=== PATIENT | female | born 1975 | race Caucasian/White ===

== ENCOUNTER 2019-12-30 11:58 | Inpatient (IN) | payer OTHER ==
--- NOTE | 2019-12-30 12:17 | BHS.RME ---
Substance Use & Tx History - Substance Use History Alcohol Substance amount: 1.75 liters vodka Frequency of use: Daily Substance route: Oral Date of Last Use: 12/29/19 Physical/Psych/Mental Status - Behavior General Behavior: Increased activity (restlessness, agitation) Eye Contact: Normal - Cooperativeness Cooperativeness: Cooperative - Thinking Thought Processes: Tight, Logical, Goal Directed Thought content: Future oriented - Physical Health Problems Is patient presently having any pain?: No Does patient presently have any injuries (include location): No Does patient currently have a fever: No Is patient : No CIWA Nausea/Vomitin-Mild Nausea/No Vomiting Muscle Tremors: 3 Anxiety: 4-Mod. Anxious/Guarded Agitation: 4-Moderately Restless Paroxysmal Sweats: 1-Minimal Palms Moist Tacttile Disturbances: 0-None Auditory Disturbances: 0-None Visual Disturbances: 0-None Headache: 0-None Present (was seen in ER at [place] 12/29/ till 12/30 and got two doses of librium as per discharge summary.)
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
[2019-12-30] MEDS ORDERED: ACETAMINOPHEN 325 MG TABLET (FP) PO PRN ×2 (14:49)
[2019-12-30] MEDS ORDERED: METHOCARBAMOL 500 MG TABLET PO PRN (14:49)
[2019-12-30] MEDS ORDERED: MAG HYDROX/AL HYDROX/SIMETH 30 ML UNIT-DOSE CUP PO PRN (14:49)
[2019-12-30] MEDS ORDERED: hydrOXYzine PAMOATE 25 MG CAPSULE (FP) PO PRN (14:49)
[2019-12-30] MEDS ORDERED: MENTHOL/PHENOL 1 EACH UD MM PRN (14:49)
[2019-12-30] MEDS ORDERED: MAGNESIUM HYDROX 2400MG/30ML ORAL SUSPENSION 30 ML CUP PO PRN (14:49)
[2019-12-30] MEDS ORDERED: BISMUTH SUBSALICYLATE 524 MG/30 ML UD PO PRN (14:49)
[2019-12-30] MEDS ORDERED: chlordiazePOXIDE HCL 25 MG CAPSULE PO PRN (14:49)
[2019-12-30] MEDS ORDERED: MAGNESIUM CITRATE 300 ML BOTTLE PO PRN (14:49)
[2019-12-30 15:31] VITALS: BMI 37.3
[2019-12-30 16:38] LABS: HEMOGLOBIN 13.3 GM/dL (10.7-15.3); MCHC 32.6 g/dl (32.0-36.0); MEAN CELL VOLUME 82.9 fl (80-96); MEAN PLT VOLUME 8.4 fl (7.5-11.1); PLATELET COUNT 314 K/MM3 (134-434); RBC 4.94 M/mm3 (3.60-5.2); RDW 15.1 % (11.6-15.6)
[2019-12-30 16:54] LABS: ALBUMIN 3.4 g/dl (3.4-5.0); BILIRUBIN,TOTAL 0.5 mg/dL (0.2-1); BLOOD UREA NITROGEN 15.3 mg/dL (7-18); CALCIUM 8.4 mg/dL (8.5-10.1); CREATININE 0.7 mg/dL (0.55-1.3); POTASSIUM 4.4 mmol/L (3.5-5.1)
[2019-12-30] MEDS: NICOTINE 14 MG/24 HOURS TOPICAL PATCH TD SCH (17:29)
[2019-12-30] MEDS: chlordiazePOXIDE HCL 25 MG CAPSULE PO SCH ×2 (17:30→22:31)
[2019-12-30] MEDS: IBUPROFEN 400 MG TABLET (FP) PO PRN (17:30)
[2019-12-30] MEDS: THIAMINE HCL 100 MG TABLET (FP) PO SCH (22:31)
[2019-12-31] MEDS: chlordiazePOXIDE HCL 25 MG CAPSULE PO SCH ×4 (06:30→22:08)
[2019-12-31] MEDS: IBUPROFEN 400 MG TABLET (FP) PO PRN (06:31)
[2019-12-31] MEDS: PRENATAL VITAMINS W/ FOLIC ACID TABLET (FP) PO SCH (10:24)
[2019-12-31] MEDS: NICOTINE 14 MG/24 HOURS TOPICAL PATCH TD SCH (10:24)
[2019-12-31] MEDS: guaiFENesin 200 MG/10 ML 10 ML UNIT-DOSE CUPS PO PRN ×2 (10:25→22:08)
--- NOTE | 2019-12-31 11:13 | PN ---
S CIWA - CIWA Score Nausea/Vomitin-Mild Nausea/No Vomiting Muscle Tremors: 2 Anxiety: 1-Mildly Anxious Agitation: 1-Slight > Activity Paroxysmal Sweats: No Perspiration Orientation: 0-Oriented Tacttile Disturbances: 0-None Auditory Disturbances: 0-None Visual Disturbances: 0-None Headache: 1-Very Mild CIWA-Ar Total Score: 6 BHS Progress Note (SOAP) Subjective: admitted yesterday for alcohol detox. says would like cough med- non productive dry cough O: Laboratory Tests 12/30/19 12/30/19 12/30/19 15:10 15:10 15:10 WBC 12.0 H RBC 4.94 Hgb 13.3 Hct 41.0 MCV 82.9 MCH 27.0 MCHC 32.6 RDW 15.1 Plt Count 314 MPV 8.4 Sodium 142 Potassium 4.4 Chloride 109 H Carbon Dioxide 28 Anion Gap 5 L BUN 15.3 Creatinine 0.7 Est GFR (CKD-EPI)AfAm 120.43 Est GFR (CKD-EPI)NonAf 103.90 Random Glucose 93 Calcium 8.4 L Total Bilirubin 0.5 AST 12 L ALT 34 Alkaline Phosphatase 94 Total Protein 7.0 Albumin 3.4 RPR Titer Nonreactive Vital Signs - 24 hr 12/30/19 12/30/19 12/30/19 15:23 16:50 20:53 Temperature 97.2 F L 98.2 F 98.4 F Pulse Rate 93 H 95 H 93 H Respiratory 20 18 20 Rate Blood Pressure 140/96 147/73 147/80 12/31/19 12/31/19 03:30 07:19 Temperature 97.2 F L Pulse Rate 74 Respiratory 20 18 Rate Blood Pressure 125/77 a/p: Continue alcohol detox cough- encouraged fluids, cough med
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
[2019-12-31] MEDS: ALBUTEROL SO4 HFA INHALER IH PRN (22:07)
[2019-12-31] MEDS: THIAMINE HCL 100 MG TABLET (FP) PO SCH (22:08)
[2020-01-01] MEDS: ALBUTEROL SO4 HFA INHALER IH PRN ×2 (05:45→12:35)
[2020-01-01] MEDS: chlordiazePOXIDE HCL 25 MG CAPSULE PO SCH ×4 (05:46→22:30)
[2020-01-01] MEDS: PRENATAL VITAMINS W/ FOLIC ACID TABLET (FP) PO SCH (10:13)
[2020-01-01] MEDS: NICOTINE 14 MG/24 HOURS TOPICAL PATCH TD SCH (10:13)
--- NOTE | 2020-01-01 13:27 | PN ---
S CIWA - CIWA Score Nausea/Vomitin Muscle Tremors: 1-None Visible, but [place] Anxiety: 1-Mildly Anxious Agitation: 1-Slight > Activity Paroxysmal Sweats: 1-Minimal Palms Moist Orientation: 0-Oriented Tacttile Disturbances: 1-Very Mild Itch/Numbness Auditory Disturbances: 0-None Visual Disturbances: 0-None Headache: 0-None Present CIWA-Ar Total Score: 7 BHS Progress Note (SOAP) Subjective: interrupted sleep, diarrhea, but better Objective: 01/01/20 13:26 Vital Signs Temperature 97.7 F 01/01/20 08:59 Pulse Rate 86 01/01/20 08:59 Respiratory Rate 19 01/01/20 08:59 Blood Pressure 124/86 01/01/20 08:59 O2 Sat by Pulse Oximetry (%) Laboratory Tests 12/30/19 12/30/19 12/30/19 15:10 15:10 15:10 WBC 12.0 H RBC 4.94 Hgb 13.3 Hct 41.0 MCV 82.9 MCH 27.0 MCHC 32.6 RDW 15.1 Plt Count 314 MPV 8.4 Sodium 142 Potassium 4.4 Chloride 109 H Carbon Dioxide 28 Anion Gap 5 L BUN 15.3 Creatinine 0.7 Est GFR (CKD-EPI)AfAm 120.43 Est GFR (CKD-EPI)NonAf 103.90 Random Glucose 93 Calcium 8.4 L Total Bilirubin 0.5 AST 12 L ALT 34 Alkaline Phosphatase 94 Total Protein 7.0 Albumin 3.4 RPR Titer Nonreactive pt aox3 in nad ambulating Assessment: 01/01/20 13:26 withdrawal sx's Plan: cont. detox increase fluids peptobismol
[2020-01-01] MEDS: guaiFENesin 200 MG/10 ML 10 ML UNIT-DOSE CUPS PO PRN (22:30)
[2020-01-01] MEDS: THIAMINE HCL 100 MG TABLET (FP) PO SCH (22:30)
[2020-01-01] MEDS: MELATONIN 5 MG TABLETS PO PRN (22:30)
[2020-01-02] MEDS ORDERED: chlordiazePOXIDE HCL 10 MG CAPSULE PO PRN
[2020-01-02] MEDS: chlordiazePOXIDE HCL 10 MG CAPSULE PO SCH ×4 (05:45→22:06)
[2020-01-02] MEDS: IBUPROFEN 400 MG TABLET (FP) PO PRN (05:47)
[2020-01-02] MEDS: PRENATAL VITAMINS W/ FOLIC ACID TABLET (FP) PO SCH (10:27)
[2020-01-02] MEDS: NICOTINE 14 MG/24 HOURS TOPICAL PATCH TD SCH (10:28)
--- NOTE | 2020-01-02 17:55 | PN ---
S CIWA - CIWA Score Nausea/Vomitin-No Nausea/No Vomiting Muscle Tremors: None Anxiety: 3 Agitation: 2 Paroxysmal Sweats: No Perspiration Orientation: 0-Oriented Tacttile Disturbances: 0-None Auditory Disturbances: 1-Very Mild Visual Disturbances: 1-Very Mild Sensitivity Headache: 0-None Present CIWA-Ar Total Score: 7 BHS Progress Note (SOAP) Subjective: Interrupted sleep, Anxious, Fatigue. Objective: PATIENT A & O X 3, OBSERVED AMBULATING ON DETOX UNIT UNASSISTED. IN NO ACUTE DISTRESS. 01/02/20 17:56 Vital Signs Temperature 98.1 F 01/02/20 08:10 Pulse Rate 81 01/02/20 08:10 Respiratory Rate 16 01/02/20 08:10 Blood Pressure 119/79 01/02/20 08:10 O2 Sat by Pulse Oximetry (%) Laboratory Tests 12/30/19 12/30/19 12/30/19 15:10 15:10 15:10 WBC 12.0 H RBC 4.94 Hgb 13.3 Hct 41.0 MCV 82.9 MCH 27.0 MCHC 32.6 RDW 15.1 Plt Count 314 MPV 8.4 Sodium 142 Potassium 4.4 Chloride 109 H Carbon Dioxide 28 Anion Gap 5 L BUN 15.3 Creatinine 0.7 Est GFR (CKD-EPI)AfAm 120.43 Est GFR (CKD-EPI)NonAf 103.90 Random Glucose 93 Calcium 8.4 L Total Bilirubin 0.5 AST 12 L ALT 34 Alkaline Phosphatase 94 Total Protein 7.0 Albumin 3.4 RPR Titer Nonreactive LABS NOTED. ELEVATED WBC LEVEL (12.0) NOTED PATIENT AFEBRILE. NO HISTORY OF INTRAVENOUS DRUG USE REPORTED BY PATIENT ON DETOX ADMISSION ASSESSMENT. 01/02/20 17:58 Assessment: 01/02/20 17:59 WITHDRAWAL SYMPTOMS. 01/02/20 18:00 Plan: CONTINUE DETOX. INCREASE DAILY ORAL WATER INTAKE.
[2020-01-02] MEDS: guaiFENesin 200 MG/10 ML 10 ML UNIT-DOSE CUPS PO PRN (22:06)
[2020-01-02] MEDS: MELATONIN 5 MG TABLETS PO PRN (22:06)
[2020-01-02] MEDS: THIAMINE HCL 100 MG TABLET (FP) PO SCH (22:06)
[2020-01-02] MEDS: ALBUTEROL SO4 HFA INHALER IH PRN (22:08)
[2020-01-03] MEDS: chlordiazePOXIDE HCL 10 MG CAPSULE PO SCH ×2 (05:57→17:43)
[2020-01-03] MEDS ORDERED: PANTOPRAZOLE 40 MG TABLET PO ONE (10:05)
[2020-01-03] MEDS: NICOTINE 14 MG/24 HOURS TOPICAL PATCH TD SCH (10:24)
[2020-01-03] MEDS: PRENATAL VITAMINS W/ FOLIC ACID TABLET (FP) PO SCH (10:25)
--- NOTE | 2020-01-03 15:57 | PN ---
[facility] CIWA - CIWA Score Nausea/Vomitin-No Nausea/No Vomiting Muscle Tremors: 2 Anxiety: 2 Agitation: 0-Normal Activity Paroxysmal Sweats: 1-Minimal Palms Moist Orientation: 0-Oriented Tacttile Disturbances: 0-None Auditory Disturbances: 0-None Visual Disturbances: 0-None Headache: 0-None Present CIWA-Ar Total Score: 5 BHS Progress Note (SOAP) Subjective: Cough when lay down to sleep, stated has GERD and used to take medication (PPI) but stopped taking it, otherwise feels ok Objective: 01/03/20 15:56 Last Vital Signs Temp Pulse Resp BP Pulse Ox 98.8 F 77 18 153/85 01/03/20 12:30 01/03/20 12:30 01/03/20 12:30 01/03/20 12:30 Elevated b/p noted: has htn, not on med Laboratory Tests 12/30/19 12/30/19 12/30/19 15:10 15:10 15:10 WBC 12.0 H RBC 4.94 Hgb 13.3 Hct 41.0 MCV 82.9 MCH 27.0 MCHC 32.6 RDW 15.1 Plt Count 314 MPV 8.4 Sodium 142 Potassium 4.4 Chloride 109 H Carbon Dioxide 28 Anion Gap 5 L BUN 15.3 Creatinine 0.7 Est GFR (CKD-EPI)AfAm 120.43 Est GFR (CKD-EPI)NonAf 103.90 Random Glucose 93 Calcium 8.4 L Total Bilirubin 0.5 AST 12 L ALT 34 Alkaline Phosphatase 94 Total Protein 7.0 Albumin 3.4 RPR Titer Nonreactive Labs reviewed: wbc 12 (high) Assessment: 01/03/20 16:00 Withdrawal sxs Noted with htn and leukocytosis Plan: Continue detox Encouraged PO water intake Consider discharge patient tomorrow if leukocytosis resolved HTN: start norvasc 5mg PO daily, first dose now Leukocytosis: asymptomatic for infection, repeat CBC
[2020-01-03] MEDS ORDERED: amLODIPine BESYLATE 5 MG TABLET (FP) PO SCH (16:00)
[2020-01-03] MEDS: THIAMINE HCL 100 MG TABLET (FP) PO SCH (22:15)
[2020-01-03] MEDS: guaiFENesin 200 MG/10 ML 10 ML UNIT-DOSE CUPS PO PRN (22:16)
[2020-01-03] MEDS: MELATONIN 5 MG TABLETS PO PRN (22:16)
[2020-01-04] MEDS ORDERED: chlordiazePOXIDE HCL 10 MG CAPSULE PO ONE (05:00)
[2020-01-04 08:53] VITALS: TEMP 97.3
[2020-01-04 08:55] VITALS: BP 116/64; PULSE 79
--- NOTE | 2020-01-04 09:52 | DS ---
[facility] Detox Discharge Summary Admission Date: 12/30/19 Discharge Date: 01/04/20 - History Present History: Alcohol Dependence - Physical Exam Results Vital Signs: Vital Signs Temperature 97.3 F L 01/04/20 05:46 Pulse Rate 79 01/04/20 06:10 Respiratory Rate 18 01/04/20 06:10 Blood Pressure 116/64 01/04/20 06:10 O2 Sat by Pulse Oximetry (%) Pertinent Admission Physical Exam Findings: Vital Signs Temperature 97.3 F L 01/04/20 05:46 Pulse Rate 79 01/04/20 06:10 Respiratory Rate 18 01/04/20 06:10 Blood Pressure 116/64 01/04/20 06:10 O2 Sat by Pulse Oximetry (%) Laboratory Tests 12/30/19 12/30/19 12/30/19 15:10 15:10 15:10 WBC 12.0 H RBC 4.94 Hgb 13.3 Hct 41.0 MCV 82.9 MCH 27.0 MCHC 32.6 RDW 15.1 Plt Count 314 MPV 8.4 Sodium 142 Potassium 4.4 Chloride 109 H Carbon Dioxide 28 Anion Gap 5 L BUN 15.3 Creatinine 0.7 Est GFR (CKD-EPI)AfAm 120.43 Est GFR (CKD-EPI)NonAf 103.90 Random Glucose 93 Calcium 8.4 L Total Bilirubin 0.5 AST 12 L ALT 34 Alkaline Phosphatase 94 Total Protein 7.0 Albumin 3.4 RPR Titer Nonreactive aaox3 ambulating no acute distress no respiratory distress noted - Treatment Hospital Course: Detox Protocol Followed, Detoxed Safely, Responded well, Discharged Condition Good, Rehab Referral Accepted - Medication Discharge Medications: Ambulatory Orders Albuterol Sulfate Inhaler - [Ventolin Hfa Inhaler -] 2 inh PO Q4H PRN 12/30/19 - Diagnosis (1) Alcohol abuse with intoxication, uncomplicated Current Visit: Yes Status: Acute (2) Alcohol-induced mood disorder Current Visit: Yes Status: Acute (3) Alcohol-induced sleep disorder Current Visit: Yes Status: Acute (4) Depression Current Visit: Yes Status: Acute (5) Bronchial asthma Current Visit: Yes Status: Chronic (6) HTN (hypertension) Current Visit: Yes Status: Chronic (7) Low back pain Current Visit: Yes Status: Chronic (8) Nicotine abuse Current Visit: Yes Status: Chronic (9) Nicotine dependence Current Visit: Yes Status: Chronic (10) Alcohol related seizure Current Visit: Yes Status: Resolved - AMA Did Patient Leave Against Medical Advice: No
[2020-01-04] MEDS ORDERED: PANTOPRAZOLE 40 MG TABLET PO SCH (10:00)
== END 2020-01-04 09:30 | disposition home or self-care (01) | DRG 775 ==
LOC: YASAS 11:58 → Y6N 15:47
PROVIDERS: ADMIT Allergy & Immunology; ATTEND Allergy & Immunology
PROC: HZ2ZZZZ Detoxification Services for Substance Abuse Treatment (ICD-10-PCS; principal; 2019-12-30)
DX: F10.230 Alcohol dependence with withdrawal, uncomplicated (principal); F17.210 Nicotine dependence, cigarettes, uncomplicated; F10.24 Alcohol dependence with alcohol-induced mood disorder; F10.282 Alcohol dependence with alcohol-induced sleep disorder; F32.9 Major depressive disorder, single episode, unspecified; I10 Essential (primary) hypertension; K21.9 Gastro-esophageal reflux disease without esophagitis; J45.909 Unspecified asthma, uncomplicated; D72.829 Elevated white blood cell count, unspecified; M54.5 Low back pain; Z86.69 Personal history of other diseases of the nervous system and sense organs; Z56.0 Unemployment, unspecified; Z59.0 Homelessness
CPT/HCPCS: 36415; 80053; 85027; 86593